=== PATIENT | female | born 1950 | race Caucasian/White ===

== ENCOUNTER 2019-06-30 13:55 | Inpatient (IN) ==
[2019-06-30] MEDS ORDERED: ZOFRAN IV ONE (14:16)
--- NOTE | 2019-06-30 14:50 | PROVIDER DOCUMENTATION ---
HPI-Head Injury - General Chief Complaint: Fall Stated Complaint: FALL/HEAD INJURY Time Seen by Provider: 06/30/19 14:04 Source: patient, family Allergies/Adverse Reactions: Patient Allergies Allergy/AdvReac Type Severity Reaction Status Date / Time codeine Allergy VOMITING Verified 11/15/14 10:59 Home Medications: Home Medication List Medication Instructions Recorded Confirmed Last Taken Type Gemfibrozil [Lopid] 600 mg 11/15/14 11/15/14 11/15/14 History Meloxicam [Mobic] 7.5 mg 11/15/14 11/15/14 11/13/14 History Olmesartan Medoxomil [Benicar] 20 mg 11/15/14 11/15/14 11/15/14 History - History of Present Illness-Head Injury Nature of Presenting Problem: [id number] presents to the ER with c/o falling off her back porch and hitting the back of her head. She denies any LOC. There is a laceration or abrasion noted to the right occipital region, bleeding stopped [employer]. Patient had vomited just prior to exam and c/o GAYTAN and dizziness. Head Injury Location: reports: occipital Other injuries associated with incident:: reports: head Quality of Pain: reports: aching Severity: reports: moderate Onset/Duration: reports: just prior to arrival Method of Injury: reports: fell Any recent trauma/injury?: reports: minor Loss of Consciousness: no loss of consciousness Injury Associated Symptoms: reports: dizziness, headaches Locality of Occurance: Home Similar Symptoms Previously?: No Recently seen or treated by another doctor?: No Review of Systems - Adult - REVIEW OF SYSTEMS - ADULT Constitutional: reports: see HPI. denies: chills, fever Eyes: reports: no symptoms reported. denies: decreased vision, blurred vision, double vision Ears, Nose, Mouth & Throat: reports: see HPI. denies: ear discharge, ear pain Cardiovascular: reports: no symptoms reported Respiratory: reports: no symptoms reported Gastrointestinal: reports: no symptoms reported Genitourinary: reports: no symptoms reported Musculoskeletal: reports: no symptoms reported Integumentary: reports: see HPI, other (wound to right superior occipital area) Neurological: reports: see HPI, dizziness/vertigo, headache/migraines Psychiatric: reports: no symptoms reported Endocrine: reports: no symptoms reported Hematologic/Lymphatic: reports: no symptoms reported Allergic/Immunologic: reports: no symptoms reported All Other Systems: Reviewed and Negative Past History - Adult - PAST MEDICAL HISTORY-ADULT Review of Records: reports: Old Records Reviewed, Nursing Assessment Review, Medications Reviewed, Social history reviewed & non-contributory. Major Childhood Illnesses: reports: denies history Cardiovascular: reports: HTN, hyperlipidemia Respiratory: reports: denies history Gastrointestinal: reports: denies history Obstetrical/Gynecological: reports: denies history Genitourinary: reports: denies history Musculoskeletal: reports: denies history Neurological: reports: Multiple Sclerosis Endocrine/Immune: reports: denies history Other Conditions: reports: denies history - IMMUNIZATION STATUS Childhood Immunizations: See Nurse Assessment Flu Vaccine: See Nurse Assessment - FAMILY HISTORY Family History: reviewed, not pertinent - SOCIAL HISTORY Smoking: denies Substance Use: denies Living Situation: family Physical Exam- Neurological - Physical Exam-Neuro Initial Vital Signs Reviewed: Yes General Appearance: alert, mild distress Eye Exam: bilateral eye: normal inspection, PERRL, EOMI HENMT: moist mucous membranes, TMs normal Head Injury: lacerations (right scalp), tenderness (right occipital area) Neck: non-tender, full range of motion, supple, other (muscular tenderness, full ROM) Respiratory: lungs clear, normal breath sounds Cardiovascular: regular rate, rhythm Extremity: normal gait mini shifter Exam: normal hearing, normal speech, PERRL Coordination/Gait: normal finger to nose, normal gait Integumentary: other (right superior, posterior hematoma noted to scalp, bleedi ng controlled.) Psych/Mental Status: normal mood/affect, normal thought content, normal thought process - Glascow Coma Scale Best Eye Response: (4) open spontaneously Best Verbal Response: (5) oriented Best Motor Response: (6) obeys commands Total Glascow Score: 15 Progress - PLAN OF CARE/RESULTS Progress/Plan/Lab Results: Vital Signs - 8 hr 06/30/19 14:01 Temperature 97.8 F Pulse Rate 113 H Respiratory Rate 18 Blood Pressure 127/70 O2 Sat by Pulse Oximetry 95 Laboratory Results - last 24 hr 06/30/19 14:36 Plasma Lactate 1.5 Orders Category Date Time Status NEWS Score 2-4:Order NEWS Lactate Series NOW Care 06/30/19 14:[address] HEAD/C-SPINE W/O CONTRAST [CT] Stat Exams 06/30/19 14:15 Completed CBC WITH ELECTRONIC DIFF [HEME] Stat Lab 06/30/19 16:47 Uncollected COMPREHENSIVE METABOLIC PANEL [CHEM] Stat Lab 06/30/19 16:47 Uncollected LACTATE, PLASMA [CHEM] Lab 06/30/19 14:36 Completed LACTATE, PLASMA [CHEM] Lab 06/30/19 17:15 Uncollected LACTATE, PLASMA [CHEM] Lab 06/30/19 20:15 Uncollected UA NIMS W/REFLEX CULT [URINALYSIS] Stat Lab 06/30/19 16:47 Uncollected Ketorolac [Toradol] Med 06/30/19 15:59 Discontinued 30 mg IV NOW ONE Ondansetron [Zofran] Med 06/30/19 14:16 Discontinued 4 mg IV NOW ONE EKG [EKG] Stat Ther 06/30/19 16:47 Ordered patient and family verbalize an understanding of POC and agree with treatment rendered here today. Patient to be admitted for observation - CT/MRI 1 CT Study: Cervical Spine, Head Impression: See EMR Report ( FINDINGS: CT head: There is subcutaneous soft tissue swelling at the right posterior superior scalp. There is no evidence of skull fracture. There is no evidence of intracranial hemorrhage, acute mass effect, or midline shift. There is a 2.4 cm densely calcified meningioma at the anterior falx which has enlarged minimally (by 1 mm) compared to prior. There are chronic microvascular ischemic changes. There is no indication of recent infarct, although acute infarcts may not be immediately visible. CT cervical spine: There are multilevel degenerative changes, particularly prominent at mid cervical facets. There is 1.9 mm anterolisthesis at C4-5 associated with facet degeneration. There is no fracture, acute subluxation, or precervical soft tissue swelling identified. IMPRESSION: CT head: Subcutaneous soft tissue swelling at right posterior superior scalp. Minimal increase in size of the anterior falcine meningioma compared to prior. No visible acute intracranial abnormality otherwise. No evidence of intracranial injury. CT cervical spine: Multilevel degenerative disease. No evidence of fracture or acute subluxation.) - CONSULTS/PCP/HOSPITALIST Notification #1 *Consult/PCP/Hospitalist*: Dr Crisostomo Time Discussed: 16:52 Reason/Comments: concussion with continued nausea/vomiting and dizziness Consult Disposition: Admit Departure - Departure Date of Disposition Decision: 06/30/19 Time of Disposition Decision: 16:50 DIAGNOSIS: Concussion Qualifiers: Encounter type: initial encounter Loss of consciousness presence/duration: without LOC Qualified Code(s): S06.0X0A - Concussion without loss of consciousness, initial encounter Head injury, closed, with concussion Qualifiers: Encounter type: initial encounter Loss of consciousness presence/duration: without LOC Qualified Code(s): S06.0X0A - Concussion without loss of cons ciousness, initial encounter Fall Qualifiers: Encounter type: initial encounter Qualified Code(s): W19.XXXA - Unspecified f all, initial encounter Disposition: ADMITTED INPATIENT 09 Certified Medical Emergency: Emergent Condition: Critical Additional Instructions: ED Follow Up Instructions: You have been treated by a care provider in the Emergency Department. These instructions are being provided to you so you can have an understanding of how to care for yourself upon discharge. Upon discharge from the Emergency Department, you are responsible for making arrangements for follow-up care by a physician of your choice. Take all prescribed medications as directed. Return to the Emergency Department immediately for any new or worsening symptoms. You may call the Physician Referral phone number at [phone] to obtain a list of Physicians who are taking new patients. Referrals and Follow-Ups: Dinesh Saeed MD [Primary Care Provider] - - Critical Care Note This patient required my direct & personal management of CC.: No Attestation - Physician/ TARA Attestation Patient care was provided by Advanced Practice Provider:: Yes Advanced Practice Provider:: Mu Mobley Advanced Practice Provider documentation review:: The Mid-level provider documentation, treatment plan and medical decision making was reviewed by the physician who agrees with all treatment and medical decision making by the MLP. The physician spent face to face time with patient:: No Advanced Practice Provider documentation review:: Supervising physician onsite and consulted in the evaluation and care of this patient. The physician did not have a face to face encounter with the patient.
[2019-06-30] MEDS ORDERED: TORADOL IV ONE (15:59)
--- NOTE | 2019-06-30 16:01 | Diag Imaging Result Doc PS360 ---
EXAM: CT HEAD/C-SPINE W/O CONTRAST - 06/30/2019 HISTORY: fall with head injury TECHNIQUE: CT head/cervical spine without contrast COMPARISON: 12/04/2017 CT head, 11/15/2014 CT cervical spine FINDINGS: CT head: There is subcutaneous soft tissue swelling at the right posterior superior scalp. There is no evidence of skull fracture. There is no evidence of intracranial hemorrhage, acute mass effect, or midline shift. There is a 2.4 cm densely calcified meningioma at the anterior falx which has enlarged minimally (by 1 mm) compared to prior. There are chronic microvascular ischemic changes. There is no indication of recent infarct, although acute infarcts may not be immediately visible. CT cervical spine: There are multilevel degenerative changes, particularly prominent at mid cervical facets. There is 1.9 mm anterolisthesis at C4-5 associated with facet degeneration. There is no fracture, acute subluxation, or precervical soft tissue swelling identified. IMPRESSION: CT head: Subcutaneous soft tissue swelling at right posterior superior scalp. Minimal increase in size of the anterior falcine meningioma compared to prior. No visible acute intracranial abnormality otherwise. No evidence of intracranial injury. CT cervical spine: Multilevel degenerative disease. No evidence of fracture or acute subluxation. This exam was performed using automated exposure control, adjustment of mA or kV according to patient size, and/or use of iterative reconstruction technique. Electronically signed by Pierce Monahan 06/30/2019 3:59 PM
[2019-06-30] MEDS ORDERED: TYLENOL PO PRN (16:53)
[2019-06-30] MEDS ORDERED: ZOFRAN IV PRN (16:53)
[2019-06-30] MEDS ORDERED: NS 1,000 ML IV ONE (16:56)
[2019-06-30 17:11] LABS: BASO# 0.07 X1000 (0.0-0.2); BASO% 0.8 % (0.0-0.8); EOS# 0.24 X1000 (0.0-0.7); EOS% 2.9 % (0.0-10.0); HEMATOCRIT 39.4 % (37.0-47.0); HEMOGLOBIN 12.9 g/dL (12.0-16.0); IMM GRAN# 0.06 X1000 (0.0-0.04); IMM GRAN% 0.7 % (0.0-0.5); LYMPH# 2.13 X1000 (1.2-3.4); LYMPH% 25.6 % (20.5-51.1); MCHC 32.7 g/dL (33-37); MCV 85.7 FL (81-99); MONO# 0.54 X1000 (0.11-0.59); MONO% 6.5 % (1.7-9.3); MPV 10.9 FL (7.4-10.4); NEUT# 5.28 X1000 (1.4-6.5); NEUT% 63.5 % (42.2-75.2); PLT 490 X1000 (130-400); RDW 13.5 % (11.5-14.5); WBC 8.32 X1000 (4.8-10.8)
[2019-06-30 17:16] LABS: AGAP 17; ALB/GLOB RATIO 1.8; ALBUMIN 4.6 g/dL (3.5-5.0); ALKALINE PHOSPHATASE 75 U/L (32-104); BUN 24 mg/dL (8-22); CALCIUM 9.9 mg/dL (8.8-10.2); CHLORIDE 100 mmol/L (98-107); COSMO 279; CREATININE 0.8 mg/dL (0.5-0.9); ESTIMATED GFR > 60; GLUCOSE 127 mg/dL (70-104); GOT 18 U/L (10-30); GPT 9 U/L (10-36); POTASSIUM 3.8 mmol/L (3.5-5.1); SODIUM 137 mmol/L (136-145); TCO2 20 mmol/L (25-35); TOTAL BILIRUBIN 0.23 mg/dL (0.20-1.00); TOTAL PROTEIN 7.1 g/dL (6.3-8.3)
[2019-06-30 17:29] LABS: URINE SOURCE CLEAN CATCH
[2019-06-30 17:34] LABS: BILIRUBIN URINE NEGATIVE (NEGATIVE); BLOOD URINE TRACE (NEGATIVE); COLOR YELLOW; GLUCOSE URINE NEGATIVE (NEGATIVE); KETONE URINE NEGATIVE (NEGATIVE); LEUKOCYTES URINE TRACE (NEGATIVE); NITRITE URINE NEGATIVE (NEGATIVE); PROTEIN URINE NEGATIVE (NEGATIVE); SP GRAVITY URINE 1.014; TURBIDITY URINE CLEAR (CLEAR); UR EPITHELIAL CELLS <10 /HPF (<10); URINE BACTERIA NEGATIVE /HPF; URINE RBC <10 /HPF (<10); URINE WBC <10 /HPF (<10); UROBILINOGEN URINE NORMAL (NORMAL)
--- NOTE | 2019-06-30 18:45 | EKG Report ---
Test Performed on : 06/30/2019 5:31:18 PM Test Reason : dizziness Blood Pressure : / mmHG Vent. Rate : 091 BPM Atrial Rate : 091 BPM P-R Int : 176 ms QRS Dur : 082 ms QT Int : 346 ms P-R-T Axes : 029 -11 014 degrees QTc Int : 425 ms Normal sinus rhythm. Possible Left atrial enlargement Possible Anterior infarct , age undetermined Abnormal ECG No previous ECGs available Unconfirmed Result
--- NOTE | 2019-06-30 20:45 | HISTORY AND PHYSICAL ---
CHIEF COMPLAINT: Fall and head injury. Ms Verdin, 68-year-old white female patient of Dr. Saeed was in her usual state of health. This afternoon patient had lunch after amish, she came home, she had some grocery in her hand. She was trying to open strong door, lost balance and patient fell backward. She hit her neck and head. The patient did have lacerated wound on the occipital area with some bleeding. No loss of consciousness. No ENT bleeding. The patient had workup done in the ER in the form of CT scan of the head and neck which did not reveal any acute changes. The patient was complaining of dizziness when she was trying to get up or move her head from side to side. Because of her head injury, dizziness and she was also complaining of headache we decided to admit the patient for further care and observation. The patient denied any injury anywhere else. The patient does have neck pain. No ENT bleeding. The patient vomited once. At times nausea, no typical chest pain, palpitation prior to this fall. Denied any cough, expectoration or hemoptysis. Denied abdominal pain. No diarrhea, blood, or mucus in the stool. No dysuria or hematuria. Denied any focal weakness. No further history available at this time. ALLERGIES: Codeine and sulfa. MEDICATIONS: Include lisinopril, aspirin and Lopid. PAST MEDICAL HISTORY: Significant for hypertension, hyperlipidemia, osteoarthritis. The patient had a hysterectomy many years ago. There was questionable history of multiple sclerosis. FAMILY HISTORY: Significant for father with melanoma, mother had high blood pressure and dementia. PERSONAL HISTORY: , nonsmoker. Denied alcohol or substance abuse. Independent in activities of daily living. FAMILY HISTORY: Noncontributory. PHYSICAL EXAMINATION: GENERAL: Elderly white female patient in no acute distress. VITAL SIGNS: Blood pressure 127/70, pulse 113 on arrival but then it was 84, respiration 18, temperature 97.8 degrees. SKIN: The patient had lacerated wound on the occipital area. Pupils reacting to light. Fundus cannot be penetrated. Good oral hygiene. No tonsillopharyngeal congestion or exudate. Ears and nose benign. NECK: Supple. No JVD, thyromegaly or lymphadenopathy. CHEST: Bilateral good air entry present. No rales or rhonchi. CARDIOVASCULAR: S1 and S2 heard. No gallop or thrill. ABDOMEN: Soft, nontender. Bowel sounds present. No organomegaly or mass. EXTREMITIES: No cyanosis, clubbing. No acute DVT. Peripheral pulsation intact. NECK SKEWER: Alert, awake, answering questions fairly well. Able to move all 4 limbs. Movement of head causing dizziness. CONSIDERATION: 1. Head injury, possibility of concussion cannot be ruled out. 2. Lacerated wound on the occipital area. 3. History of hypertension. 4. Hyperlipidemia. LABORATORY DATA: Revealed hemoglobin 12.9, hematocrit 39.4, WBC count 8.32, platelet count 490,000. Electrolytes fairly benign. Blood sugar 127. Urinalysis was negative. Patient had CT scan of the head and cervical spine. Results reviewed. The patient does have calcified meningioma at the anterior faux which has enlarged minimally. CT of the cervical spine did reveal multilevel degenerative changes and some facet arthropathy. There is 1.9 mm anterolisthesis at C4-5 associated with facet degeneration. No fracture, acute subluxation or free cervical soft tissue swelling . Her other problems include hypertension, lacerated wound on the scalp, hyperlipidemia, meningioma. PLAN: Admit patient. IV fluid. Neuro check. Pain management. Continue home medicine. Overall plan discussed with the patient and she is in agreement. Dr. Saeed will take over her care from tomorrow morning. cc: Reji Sawyer MD
[2019-06-30] MEDS: ASPIRIN EC PO SCH (22:23)
[2019-06-30] MEDS: LOPID PO SCH (22:42)
[2019-07-01] MEDS: TORADOL IV PRN ×3 (00:34→21:41)
[2019-07-01 00:49] LABS: URINE SOURCE CLEAN CATCH
[2019-07-01 00:55] LABS: BILIRUBIN URINE NEGATIVE (NEGATIVE); BLOOD URINE NEGATIVE (NEGATIVE); COLOR YELLOW; GLUCOSE URINE NEGATIVE (NEGATIVE); KETONE URINE NEGATIVE (NEGATIVE); LEUKOCYTES URINE MODERATE (NEGATIVE); NITRITE URINE NEGATIVE (NEGATIVE); PH URINE 5.5; PROTEIN URINE 30 mg/dL (NEGATIVE); SP GRAVITY URINE 1.023; TURBIDITY URINE CLEAR (CLEAR); UROBILINOGEN URINE NORMAL (NORMAL)
[2019-07-01 01:18] LABS: UR EPITHELIAL CELLS <10 /HPF (<10); URINE BACTERIA NEGATIVE /HPF; URINE RBC <10 /HPF (<10)
[2019-07-01 02:02] LABS: URINE CASTS NONE SEEN; URINE CRYSTALS NONE SEEN; URINE SMALL ROUND CELLS NONE SEEN; URINE YEAST NONE SEEN
[2019-07-01 08:00] LABS: BASO# 0.03 X1000 (0.0-0.2); BASO% 0.3 % (0.0-0.8); EOS# 0.26 X1000 (0.0-0.7); HEMATOCRIT 35.7 % (37.0-47.0); HEMOGLOBIN 11.4 g/dL (12.0-16.0); IMM GRAN# 0.04 X1000 (0.0-0.04); IMM GRAN% 0.5 % (0.0-0.5); LYMPH# 2.32 X1000 (1.2-3.4); LYMPH% 26.8 % (20.5-51.1); MCH 27.7 PG (27-31); MCHC 31.9 g/dL (33-37); MCV 86.9 FL (81-99); MONO# 0.69 X1000 (0.11-0.59); MPV 10.3 FL (7.4-10.4); NEUT# 5.33 X1000 (1.4-6.5); NEUT% 61.4 % (42.2-75.2); PLT 399 X1000 (130-400); RBC 4.11 XMIL (4.2-5.4); RDW 13.3 % (11.5-14.5); WBC 8.67 X1000 (4.8-10.8)
[2019-07-01 08:29] LABS: ALB/GLOB RATIO 1.8; CALCIUM 9.6 mg/dL (8.8-10.2); TOTAL BILIRUBIN 0.38 mg/dL (0.20-1.00); TOTAL PROTEIN 6.2 g/dL (6.3-8.3)
[2019-07-01] MEDS: LOPID PO SCH ×2 (08:58→21:41)
[2019-07-01] MEDS: ROCEPHIN 1 GM in NS 50 ML IV SCH (08:58)
[2019-07-01] MEDS: PRINIVIL PO SCH (08:58)
[2019-07-01] MEDS: ASPIRIN EC PO SCH (08:58)
[2019-07-02] MEDS: TORADOL IV PRN ×2 (02:44→09:18)
[2019-07-02] MEDS: ROCEPHIN 1 GM in NS 50 ML IV SCH ×2 (05:54→06:58)
[2019-07-02 07:29] VITALS: BP 130/58
[2019-07-02] MEDS: ASPIRIN EC PO SCH (08:07)
[2019-07-02] MEDS: LOPID PO SCH (08:07)
[2019-07-02] MEDS: PRINIVIL PO SCH (08:07)
--- NOTE | 2019-07-04 13:49 | PROGRESS NOTE ---
DATE: 07/01/2019 This is a late entry. SUBJECTIVE: Patient evaluated on the morning of 07/01/2019 after she was admitted due to a fall where she had had groceries in her arm, fell back, banging in her occipital area. She has had some dizziness since that episode and she was evaluated in the emergency room with a CT head and C- spine reviewed which showed a chronic old meningioma. She has been followed through the years per Dr. Tee and evaluated remotely for MS, which was found not to be present. He has followed the meningioma as well. The patient remembers the entire event and did not lose consciousness with the fall. She has had some dizziness fairly prominently and she has had no further emesis since 1 episode since being in the hospital. OBJECTIVE: Vital signs: Afebrile. Vital signs stable. Cardiovascular: Regular rate and rhythm without murmur. Lungs: Clear to auscultation. DTRs are equal upper extremities and lower extremities. Head: Occipital area, the scalp is without any new blood on the bandage and there are no sutures or pelon in place on the scalp. IMAGING: Reviewed a CT of the head and the CT of the spine. LABORATORY DATA: Reviewed in great detail. EKG was unremarkable. ASSESSMENT: 1. Concussion with ongoing dizziness. 2. Occipital contusion with laceration. No closure required. 3. Mechanical fall. 4. Hypertriglyceridemia. 5. Hypertension. PLAN: At this time, due to the dizziness, we are going to keep the patient in the hospital. She does not feel she is ready to go home. We will ambulate her and give her pain medication as required for her headache and will monitor the dizziness and hopefully will be able to discharge home tomorrow. If not, consider consultation again with Dr. Tee. Reassess in the morning. cc: Dinesh Saeed MD
--- NOTE | 2019-07-05 10:22 | DISCHARGE SUMMARY ---
ADMISSION DATE: 06/30/2019 DISCHARGE DATE: 07/02/2019 DIAGNOSES: 1. Concussion. 2. Laceration, occipital area. 3. Head trauma. 4. Mechanical fall. 5. Hypertension. 6. Hyperlipidemia. 7. Osteoarthritis. 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 PROCEDURES: 1. CT head showing subcutaneous soft tissue swelling right posterior superior scalp. Minimal increase in the size of anterior falcine hemangioma compared to prior. 2. CT of the C-spine revealing multilevel degenerative disk disease. No evidence of fracture or subluxation. REASON FOR ADMISSION AND HOSPITAL COURSE: The patient is a 68-year-old, white female followed in my medical practice. She has had chronic workup of meningioma by Dr. Tee in the past, and has been followed by him through the years sporadically. The patient has had some history of difficulties and was assessed for multiple sclerosis, but was found not to have this illness in the past per Dr. Tee. She came in with a fall where she describes she was carrying 2 armloads of groceries in the house, and tripped up on the stairs and fell backwards, banging her right posterior occipital area on the concrete. She had a laceration there which did not require closure. The patient remembers the entire event. saw her laying on the floor and helped her up and got her into the hospital for evaluation. CT head and C-spine as above. She does have a chronic meningioma which has been assessed by Dr. Tee and followed. It does show very slight increase. The patient had some dizziness afterwards and that was fairly prominent. It was felt she was not able to be discharged the next day, so we ambulated her in the [facility] and watched her. She has initially had one episode of emesis after the presentation. She did not have any further vomiting, dizziness seemed to subside. The headache was still present, but tolerable and it was felt by 07/02/2019 in the a.m. that her exam was normal and cranial nerves are intact. Lungs clear. CV: RRR without murmur. Extremities: No edema. The bandage was then placed on the scalp. There were no signs of active bleeding. It was felt that she could be discharged home to follow up with me within 1 week. She will resume her home medications that include Lopid 600 mg p.o. b.i.d., lisinopril 10 mg p.o. daily. She will hold her aspirin 81 mg daily for 1 week. I gave her Ultram for pain 50 mg p.o. q. 6 hours p.r.n. pain. Again, she will follow up in the office in 1 week. cc: Dinesh Saeed MD
== END 2019-07-02 10:05 | disposition home or self-care (01) | DRG 90 ==
LOC: ED 13:55 → 4N 20:59
PROVIDERS: ADMIT Family Medicine; ATTEND Family Medicine